=== PATIENT | male | born 1980 | race Caucasian/White ===

== ENCOUNTER 2017-08-08 08:25 | Emergency (ER) | payer SELFPAY ==
--- NOTE | 2017-08-08 08:31 | ED Physician Documentation ---
Sore Throat/Dental Pain - HISTORIAN Historian: patient - HPI Stated Complaint: dental pain Chief Complaint: Dental Pain Onset: other (3 days ) Context: Fractured Tooth, Possible Infection Associated Symptoms: R ear pain. denies: fever, chills, sore throat Worsened By: heat, cold Further Comments: yes (States pain started 3 days ago with some swelling now to right jaw line. No fever. OTC meds help "some" He has not seen a dentist "in about one year" . He has a history of dental caries) - ROS CONST: no problems - PAST HX Past History: none Other History: none Immunizations: UTD Allergies/Adverse Reactions: Allergies Allergy/AdvReac Type Severity Reaction Status Date / Time No Known Allergies Allergy Unverified 08/08/17 08:31 Home Medications: Ambulatory Orders Medication Instructions Recorded NK [NK] 08/08/17 - SOCIAL HX Smoking History: cigarettes Alcohol Use: none Drug Use: none - FAMILY HX Family History: No - REVIEWED ASSESSMENTS Nursing Assessment Reviewed: Yes Vitals Reviewed: Yes Dental Pain Physical Exam - EXAM General Appearance: no acute distress Head/Neck: head nml inspection Eyes: eyes nml inspection Mouth/Throat: lips nml, gums nml, other (right back upper tooth with some drainge. Lower tooth noted as fractured. ) Respiratory: no resp. distress, breath sounds nml CVS: reg. rate & rhythm, heart sounds nml Abdomen: soft Extremities: non-tender Skin: warm/dry Neuro/Psych: No: weakness, numbness, anxiety Discharge Clincal Impression: Pain, dental Referrals: Primary Doctor,No [Primary Care Provider] - 2 Days Comments: Amoxicillin 875 mg BID x 10 days Ibuprofen 800 mg BID as needed for pain Warm salt water gargles Tea bag to pain area See Dentist return to ER or PCP for any concerns Condition: Stable Disposition: HOME, SELF-CARE Decision to Admit: NO Date of Decison to Admit: 08/08/17 Decision Time: 08:55
[2017-08-08 08:36] VITALS: BP 130/86
[2017-08-08] MEDS ORDERED: KETOROLAC TROMETHAMINE 60 MG/2 ML VIAL IM ONE (08:36)
[2017-08-08] MEDS ORDERED: KETOROLAC TROMETHAMINE 60 MG/2 ML VIAL ONE (08:36)
== END 2017-08-08 08:58 | disposition home or self-care (01) ==
LOC: ED 08:25
DX: K02.9 Dental caries, unspecified (principal)
CPT/HCPCS: 96372; 99282; J1885